=== PATIENT | female | born 1980 | race African-American/Black ===

== ENCOUNTER 2018-02-22 16:10 | Inpatient (IN) | payer MEDICAID, OTHER ==
[~2018-02-22] VITALS: Ht 167.6 cm; Wt 84.8 kg
[~2018-02-22 16:10] MED LIST: NOCURR
[2018-02-22] MEDS ORDERED: OLAN5TAB2 PO (16:41)
[2018-02-22 16:55] LABS: BASOPHILS % (AUTO) 0.6 % (0.0-2.0); EOSINOPHILS % (AUTO) 0.5 % (1.0-6.0); HEMATOCRIT 30.3 % (36-46); HEMOGLOBIN 9.5 g/dL (12.0-16.0); LYMPHOCYTES # (AUTO) 1.8 K/uL (1.0-4.8); LYMPHOCYTES % (AUTO) 33.4 % (22.0-44.0); MEAN CORPUSCULAR HEMOGLOBIN 19.6 pg (26.0-34.0); MEAN CORPUSCULAR HGB CONC 31.3 G/dL (31.0-37.0); MEAN CORPUSCULAR VOLUME 63 fL (80-100); MONOCYTES # (AUTO) 0.3 K/uL (0.1-1.0); MONOCYTES % (AUTO) 6.1 % (2.0-9.0); NEUTROPHILS # (AUTO) 3.3 K/uL (1.8-7.7); NEUTROPHILS % (AUTO) 59.4 % (40.0-70.0); PLATELET COUNT (AUTO) 522 K/uL (150-450); RED BLOOD CELL COUNT(AUTO) 4.83 MIL/uL (4.00-5.20); RED CELL DISTRIBUTION WIDTH 19.4 % (11.5-14.5)
[2018-02-22 17:04] LABS: ANION GAP 7 mmol/L (8-16); CALCIUM, TOTAL 9.2 mg/dL (8.8-10.5); CARBON DIOXIDE 31 mmol/L (22-29); CHLORIDE 97 mmol/L (98-107); GLOMERULAR FILTR. RATE CALC > 60 mL/min (>60); GLUCOSE,RANDOM 95 mg/dL (70-110); POTASSIUM 3.7 mmol/L (3.5-5.1); SODIUM SERUM 135 mmol/L (136-145); UREA NITROGEN, BLOOD 15 mg/dL (7-18)
[2018-02-22 17:09] LABS: ALANINE AMINOTRANSFERASE 17 U/L (12-78); ALBUMIN 3.4 g/dL (3.4-5.0); ALKALINE PHOSPHATASE 95 U/L (46-116); ASPARTATE AMINOTRANSFERASE 20 U/L (15-37); BILIRUBIN,TOTAL 0.4 mg/dL (0.1-1.0)
[2018-02-22 17:36] LABS: PLATELET MORPHOLOGY COMMENT GIANT PLTS PRESENT
[2018-02-22 17:38] LABS: PATHOLOGY REVIEW, DIFF YES
[2018-02-22 18:07] LABS: AMPHET/METH SCREEN,URINE POSITIVE (NEGATIVE); BARBITURATE SCREEN, URINE NEGATIVE (NEGATIVE); BENZODIAZEPINES SCREEN,URINE NEGATIVE (NEGATIVE); CANNABINOID SCREEN,URINE NEGATIVE (NEGATIVE); COCAINE SCREEN,URINE NEGATIVE (NEGATIVE); METHADONE SCREEN, URINE NEGATIVE (NEGATIVE); OPIATE SCREEN,URINE NEGATIVE (NEGATIVE)
[2018-02-22 18:30] LABS: PHENCYCLIDINE SCREEN,URINE NEGATIVE (NEGATIVE)
[2018-02-22] MEDS ORDERED: ZOLPIDEM TARTRATE 10 MG TABLET PO PRN (18:30)
[2018-02-22] MEDS ORDERED: LORazepam 2 MG TABLET PO PRN (18:30)
[2018-02-22] MEDS ORDERED: HALOPERIDOL 5 MG TABLET PO PRN (18:30)
[2018-02-22] MEDS ORDERED: DiphenhydrAMINE HCL 25 MG CAPSULE PO ONE (19:15)
[2018-02-22] MEDS ORDERED: LORazepam 1 MG TABLET PO ONE (19:15)
[2018-02-22] MEDS ORDERED: HALOPERIDOL 5 MG TABLET PO ONE (19:15)
[2018-02-22 21:27] VITALS: BP 118/70
[2018-02-23 10:25] VITALS: BP 109/65
[2018-02-23] MEDS ORDERED: ACETAMINOPHEN 325 MG TABLET PO PRN (14:00)
[2018-02-23] MEDS ORDERED: IBUPROFEN 400 MG TABLET PO PRN (14:00)
[2018-02-23 17:00] VITALS: BP 120/58
[2018-02-23] MEDS: FERROUS SULFATE 325 MG EC TABLET PO SCH (17:48)
[2018-02-23] MEDS: OLANZapine 5 MG TABLET PO SCH (17:48)
[2018-02-24 01:30] VITALS: BP 120/67
[2018-02-24] MEDS: FERROUS SULFATE 325 MG EC TABLET PO SCH ×3 (07:07→17:20)
[2018-02-24 08:05] VITALS: BP 118/70
[2018-02-24] MEDS: OLANZapine 5 MG TABLET PO SCH ×2 (08:10→17:19)
[2018-02-24 21:03] VITALS: BP 112/73
[2018-02-25] MEDS: FERROUS SULFATE 325 MG EC TABLET PO SCH ×3 (07:01→16:36)
[2018-02-25 08:05] VITALS: BP 102/75
[2018-02-25] MEDS: OLANZapine 5 MG TABLET PO SCH ×2 (09:00→16:36)
[2018-02-25 17:21] VITALS: BP 116/64
[2018-02-26] MEDS: FERROUS SULFATE 325 MG EC TABLET PO SCH ×3 (06:53→16:23)
[2018-02-26 08:00] VITALS: BP 107/64
[2018-02-26] MEDS: OLANZapine 5 MG TABLET PO SCH ×2 (09:53→16:23)
[2018-02-26 18:23] VITALS: BP 110/61
[2018-02-27] MEDS: FERROUS SULFATE 325 MG EC TABLET PO SCH ×2 (07:08→12:06)
[2018-02-27 08:10] VITALS: BP 107/67
[2018-02-27] MEDS: OLANZapine 5 MG TABLET PO SCH (09:06)
== END 2018-02-27 14:15 | disposition left against medical advice (07) | DRG 750 ==
LOC: EMS 16:11 → 3EI 19:32 → EMS 19:40
PROVIDERS: ADMIT Psychiatry & Neurology Child & Adolescent Psychiatry; ATTEND Psychiatry & Neurology Child & Adolescent Psychiatry
DX: F25.0 Schizoaffective disorder, bipolar type (principal); E87.1 Hypo-osmolality and hyponatremia; F15.10 Other stimulant abuse, uncomplicated; D64.9 Anemia, unspecified; F14.10 Cocaine abuse, uncomplicated
CPT/HCPCS: 83036; 99285; G0480

== ENCOUNTER 2020-01-19 22:23 | Emergency (ER) | payer MEDICAID ==
[~2020-01-19] VITALS: Ht 167.6 cm; Wt 90.9 kg
[2020-01-19 22:25] VITALS: BP 143/75
== END 2020-01-20 00:30 | disposition left against medical advice (07) ==
LOC: EMS 22:23
DX: R45.851 Suicidal ideations (principal); Z53.21 Procedure and treatment not carried out due to patient leaving prior to being seen by health care provider